=== PATIENT | male | born 1985 | race African-American/Black ===

== ENCOUNTER 2025-05-19 10:18 | Emergency (ER) | payer SELFPAY ==
[2025-05-19] MEDS ORDERED: Ketorolac Tromethamine 30 MG (1 mL) VIAL ONE (15:22)
[2025-05-19] MEDS ORDERED: HYDROcodone/Acetaminophen 10/325 mg Tablet ONE (15:23)
== END 2025-05-19 15:30 ==
LOC: ERS 10:18
DX: M54.50 Low back pain, unspecified (principal)
CPT/HCPCS: 96372; 99283; J1885